=== PATIENT | female | born 2000 | race Hispanic/Latino ===

== ENCOUNTER 2021-06-11 18:42 | Inpatient (IN) | payer OTHER ==
[~2021-06-11] VITALS: Ht 157.5 cm; Wt 101.2 kg
[2021-06-11] MEDS ORDERED: LACTATED RINGERS 1000ML 1,000 ML IV ONE (19:00)
[2021-06-11] MEDS ORDERED: LIDOCAINE HCL 2% VISCOUS 15 ML UDCUP PO ONE (19:00)
[2021-06-11] MEDS ORDERED: DICYCLOMINE HCL 10 MG/5 ML ML PO ONE (19:00)
[2021-06-11] MEDS ORDERED: PROMETHAZINE HCL 25 MG/ML 1ML AMPULE IM ONE (19:00)
[2021-06-11] MEDS ORDERED: FAMOTIDINE 20MG VIAL IV ONE (19:00)
[2021-06-11] MEDS ORDERED: MAG/ALUM/SIMETH 30 ML UDCUP PO ONE (19:00)
[2021-06-11 19:20] LABS: BASOPHILS % (AUTO) 0.2 % (0.0-5.0); EOSINOPHILS % (AUTO) 0.6 % (0.0-8.0); HEMATOCRIT 46.2 % (36-48); LYMPHOCYTES % (AUTO) 12.9 % (21.0-51.0); MEAN CORPUSCULAR HEMOGLOBIN 28.6 pg (27.0-33.0); MEAN CORPUSCULAR HGB CONC 33.5 g/dL (32.0-36.0); MEAN CORPUSCULAR VOLUME 85.2 fL (79-99); MONOCYTES % (AUTO) 5.7 % (3.0-13.0); NEUTROPHILS % (AUTO) 80.3 % (40.0-77.0); PLATELET COUNT (AUTO) 259 K/uL (130-400); RED BLOOD CELL COUNT(AUTO) 5.42 MIL/uL (4.00-5.50); RED CELL DISTRIBUTION WIDTH 12.3 % (11.0-15.5); WHITE BLOOD COUNT (AUTO) 15.7 K/uL (4.8-10.8)
[2021-06-11 19:29] LABS: CREATININE 0.7 mg/dL (0.5-1.5); POTASSIUM 3.4 mmol/L (3.5-5.1)
[2021-06-11 19:34] LABS: BILIRUBIN,TOTAL 0.7 mg/dL (0.2-1.0); TOTAL PROTEIN, SERUM 8.1 g/dL (6.0-8.3)
[2021-06-11 19:43] LABS: APPEARANCE,URINE Cloudy (CLEAR); BILIRUBIN,URINE Negative (NEGATIVE); COLOR,URINE Yellow (YELLOW); GLUCOSE, URINE (UA) Negative (NEGATIVE); KETONES,URINE Negative (NEGATIVE); LEUKOCYTE ESTERASE ,URINE Moderate (NEGATIVE); NITRATE,URINE Negative (NEGATIVE); OCCULT BLOOD,URINE Large (NEGATIVE); PROTEIN,URINE POS 1+ mg/dL (NEGATIVE)
[2021-06-11 19:49] LABS: HCG,QUAL RESULT NEGATIVE (NEGATIVE)
[2021-06-11 19:51] LABS: AMPHET/METH SCREEN,URINE NEGATIVE (NEGATIVE); BARBITURATE SCREEN, URINE NEGATIVE (NEGATIVE); BENZODIAZEPINES SCREEN,URINE NEGATIVE (NEGATIVE); CANNABINOID SCREEN,URINE NEGATIVE (NEGATIVE); COCAINE SCREEN,URINE NEGATIVE (NEGATIVE); OPIATE SCREEN,URINE NEGATIVE (NEGATIVE); PHENCYCLIDINE SCREEN,URINE NEGATIVE (NEGATIVE)
[2021-06-11 19:54] LABS: BACTERIA,URINE Few /HPF (None Seen)
[2021-06-11 19:55] LABS: SQUAMOUS EPITHELIAL CELL,UR Few /HPF (0-2)
[2021-06-11] MEDS ORDERED: CEFTRIAXONE 1G VIAL ONE (19:57)
[2021-06-11] MEDS ORDERED: CEFTRIAXONE 1G VIAL IM SCH (20:00)
[2021-06-11] MEDS ORDERED: ONDANSETRON 4MG INJ ONE (20:48)
[2021-06-11] MEDS ORDERED: ONDANSETRON 4MG INJ IVP SCH (21:00)
[2021-06-11] MEDS ORDERED: HYDROMORPHONE 0.5 MG SYG (0.5MG/0.5ML) IVP PRN (21:30)
[2021-06-11] MEDS ORDERED: LACTULOSE 20 GM/30 ML UDCUP PO PRN (21:30)
[2021-06-11] MEDS ORDERED: ACETAMINOPHEN 325 MG TAB PO PRN ×2 (21:30)
[2021-06-11] MEDS ORDERED: ONDANSETRON 4MG INJ IV PRN (21:30)
[2021-06-11] MEDS: LACTATED RINGERS 1000ML 1,000 ML IV SCH (21:46)
[2021-06-11] MEDS ORDERED: POTASSIUM CHLORIDE 20MEQ/100ML 100 ML IV PRN (22:00)
[2021-06-11] MEDS ORDERED: LIDOCAINE HCL-MPF 1% 2ML VIAL IV PRN (22:00)
[2021-06-12] VITALS (24 sets, daily range): BP systolic 105–136; BP diastolic 61–82
[2021-06-12] MEDS ORDERED: 0.9%NACL 50ML 50 ML IV ONE (04:55)
[2021-06-12] MEDS: ZOSYN 3.375GM+NS 50ML 50 ML IV SCH ×3 (04:57→21:50)
[2021-06-12 05:48] LABS: BASOPHILS % (AUTO) 0.2 % (0.0-5.0); EOSINOPHILS % (AUTO) 0.4 % (0.0-8.0); HEMATOCRIT 39.6 % (36-48); MEAN CORPUSCULAR HEMOGLOBIN 28.9 pg (27.0-33.0); MEAN CORPUSCULAR HGB CONC 34.6 g/dL (32.0-36.0); MEAN CORPUSCULAR VOLUME 83.5 fL (79-99); MONOCYTES % (AUTO) 6.2 % (3.0-13.0); PLATELET COUNT (AUTO) 257 K/uL (130-400); RED BLOOD CELL COUNT(AUTO) 4.74 MIL/uL (4.00-5.50); RED CELL DISTRIBUTION WIDTH 12.6 % (11.0-15.5); WHITE BLOOD COUNT (AUTO) 10.5 K/uL (4.8-10.8)
[2021-06-12 06:03] LABS: ALBUMIN 3.5 g/dL (3.5-5.0); BILIRUBIN,TOTAL 0.6 mg/dL (0.2-1.0); CREATININE 0.5 mg/dL (0.5-1.5); POTASSIUM 3.4 mmol/L (3.5-5.1); TOTAL PROTEIN, SERUM 7.1 g/dL (6.0-8.3)
[2021-06-12] MEDS: LACTATED RINGERS 1000ML 1,000 ML IV SCH ×2 (07:30→21:57)
[2021-06-12] MEDS ORDERED: GADOTERATE MEGLUMINE 10 MMOL/20 ML VIAL IV ONE (08:09)
[2021-06-12] MEDS: FAMOTIDINE 20MG VIAL IV SCH ×2 (10:10→21:50)
[2021-06-12] MEDS ORDERED: BUPIVACAINE/PF 0.25% 30ML VIAL IJ ONE (11:38)
[2021-06-12] MEDS ORDERED: GLYCOPYRROLATE 1 MG/5 ML SYRINGE ONE (11:48)
[2021-06-12] MEDS ORDERED: MIDAZOLAM HCL 1 MG/ML 2ML VIAL ONE (11:48)
[2021-06-12] MEDS ORDERED: PROPOFOL 10 MG/ML 20ML VIAL IV ONE (11:48)
[2021-06-12] MEDS ORDERED: MEPERIDINE-PF 25 MG/ML SYG ONE ×2 (11:49→13:27)
[2021-06-12] MEDS ORDERED: FENTANYL CITRATE PF 50 MCG/1 ML 2ML VIAL ONE (11:49)
[2021-06-12] MEDS ORDERED: ROCURONIUM 10MG/1ML SYR 10 MG/ML ML ONE ×2 (11:53→12:20)
[2021-06-12] MEDS ORDERED: NEOSTIGMINE 5MG/5ML SYR IV ONE (11:53)
[2021-06-12] MEDS ORDERED: ONDANSETRON 4MG INJ ONE (11:53)
[2021-06-12 12:45] LABS: CHOLESTEROL 164 mg/dL (<200); HDL CHOLESTEROL 48 mg/dL (35-85); LDL DIRECT 102 mg/dL (0-99); TRIGLYCERIDES 76 mg/dL (30-200)
[2021-06-12] MEDS ORDERED: TRAMADOL HCL 50 MG TABLET PO PRN (14:30)
[2021-06-12] MEDS ORDERED: ONDANSETRON 4MG INJ IVP PRN (14:30)
[2021-06-12] MEDS ORDERED: PREN-154 PO (14:56)
[2021-06-12] MEDS ORDERED: POTASSIUM CHLORIDE 10% ELIXIR 20 MEQ/15 ML UDCUP PO PRN (20:00)
[2021-06-12] MEDS ORDERED: LIDOCAINE HCL-MPF 1% 2ML VIAL IV PRN (20:00)
[2021-06-12] MEDS: CEFAZOLIN SODIUM 1 GM VIAL IVP SCH (20:26)
[2021-06-12] MEDS: KCL 20 MEQ ERTAB PO PRN (23:04)
[2021-06-13] MEDS: LACTATED RINGERS 1000ML 1,000 ML IV SCH ×2 (00:27→11:54)
[2021-06-13] MEDS: KCL 20 MEQ ERTAB PO PRN (01:04)
[2021-06-13] MEDS: MORPHINE 4 MG SYG IVP PRN ×2 (01:05→12:50)
[2021-06-13 03:13] VITALS: BP 122/65
[2021-06-13] MEDS: CEFAZOLIN SODIUM 1 GM VIAL IVP SCH (04:08)
[2021-06-13] MEDS: ZOSYN 3.375GM+NS 50ML 50 ML IV SCH ×3 (05:18→21:33)
[2021-06-13 06:25] LABS: HEMATOCRIT 33.3 % (36-48); MEAN CORPUSCULAR HEMOGLOBIN 28.1 pg (27.0-33.0); MEAN CORPUSCULAR HGB CONC 31.8 g/dL (32.0-36.0); MEAN CORPUSCULAR VOLUME 88.3 fL (79-99); RED BLOOD CELL COUNT(AUTO) 3.77 MIL/uL (4.00-5.50); RED CELL DISTRIBUTION WIDTH 12.7 % (11.0-15.5); WHITE BLOOD COUNT (AUTO) 9.9 K/uL (4.8-10.8)
[2021-06-13 06:41] LABS: ALBUMIN 3.1 g/dL (3.5-5.0); BILIRUBIN,TOTAL 0.7 mg/dL (0.2-1.0); CREATININE 0.7 mg/dL (0.5-1.5); POTASSIUM 3.7 mmol/L (3.5-5.1); TOTAL PROTEIN, SERUM 6.8 g/dL (6.0-8.3)
[2021-06-13] MEDS: FAMOTIDINE 20MG VIAL IV SCH ×2 (08:42→21:33)
[2021-06-13 08:44] VITALS: BP 116/75
[2021-06-13 11:56] VITALS: BP 117/74
[2021-06-13 13:13] LABS: BASOPHILS % (AUTO) 0.4 % (0.0-5.0); EOSINOPHILS % (AUTO) 0.4 % (0.0-8.0); HEMATOCRIT 30.2 % (36-48); LYMPHOCYTES % (AUTO) 26.5 % (21.0-51.0); MEAN CORPUSCULAR HEMOGLOBIN 28.4 pg (27.0-33.0); MEAN CORPUSCULAR HGB CONC 32.8 g/dL (32.0-36.0); MEAN CORPUSCULAR VOLUME 86.5 fL (79-99); MONOCYTES % (AUTO) 8.3 % (3.0-13.0); NEUTROPHILS % (AUTO) 63.8 % (40.0-77.0); PLATELET COUNT (AUTO) 221 K/uL (130-400); RED BLOOD CELL COUNT(AUTO) 3.49 MIL/uL (4.00-5.50); RED CELL DISTRIBUTION WIDTH 12.7 % (11.0-15.5); WHITE BLOOD COUNT (AUTO) 8.4 K/uL (4.8-10.8)
[2021-06-13 15:43] VITALS: BP 115/66
[2021-06-13 19:11] VITALS: BP 110/68
[2021-06-13] MEDS ORDERED: MORPHINE 2 MG SYG IVP PRN (20:30)
[2021-06-13 23:25] VITALS: BP 120/69
[2021-06-14] MEDS: LACTATED RINGERS 1000ML 1,000 ML IV SCH (01:05)
[2021-06-14 03:25] VITALS: BP 115/65
[2021-06-14] MEDS ORDERED: LACTATED RINGERS 1000ML IV ONE (04:30)
[2021-06-14] MEDS ORDERED: HYDROCODONE/ACETAMINOPHEN 5/325 MG TAB PO ONE (04:30)
[2021-06-14] MEDS ORDERED: METOPROLOL TARTRATE 1 MG/ML 5ML VIAL IV ONE (04:30)
[2021-06-14 04:42] VITALS: BP 112/67
[2021-06-14] MEDS: ZOSYN 3.375GM+NS 50ML 50 ML IV SCH (04:59)
[2021-06-14 06:44] LABS: BASOPHILS % (AUTO) 0.2 % (0.0-5.0); EOSINOPHILS % (AUTO) 1.3 % (0.0-8.0); HEMATOCRIT 24.9 % (36-48); LYMPHOCYTES % (AUTO) 27.9 % (21.0-51.0); MEAN CORPUSCULAR HEMOGLOBIN 28.8 pg (27.0-33.0); MEAN CORPUSCULAR HGB CONC 32.5 g/dL (32.0-36.0); MEAN CORPUSCULAR VOLUME 88.6 fL (79-99); MONOCYTES % (AUTO) 8.3 % (3.0-13.0); PLATELET COUNT (AUTO) 178 K/uL (130-400); RED BLOOD CELL COUNT(AUTO) 2.81 MIL/uL (4.00-5.50); RED CELL DISTRIBUTION WIDTH 12.5 % (11.0-15.5); WHITE BLOOD COUNT (AUTO) 8.9 K/uL (4.8-10.8)
[2021-06-14 07:00] VITALS: BP 108/61
[2021-06-14 08:29] LABS: ALBUMIN 2.7 g/dL (3.5-5.0); BILIRUBIN,TOTAL 0.5 mg/dL (0.2-1.0); CREATININE 0.6 mg/dL (0.5-1.5); POTASSIUM 3.6 mmol/L (3.5-5.1); TOTAL PROTEIN, SERUM 6.2 g/dL (6.0-8.3)
[2021-06-14] MEDS ORDERED: PRENATAL VITAMIN RX TABLET PO SCH (09:00)
[2021-06-14] MEDS: FAMOTIDINE 20MG VIAL IV SCH (09:00)
[2021-06-14] MEDS ORDERED: IOHEXOL-350 75 ML VIAL IV ONE (09:15)
[2021-06-14] MEDS ORDERED: AMOX-426 PO (10:45)
== END 2021-06-14 12:10 | disposition home or self-care (01) | DRG 417 ==
LOC: EDH 18:42 → EDHIP 18:43 → OBSVTOIN 18:43 → UNDOADMOB 19:43 → EDHIP 19:43 → UNDOADMOB 20:59 → WSH 06-12 11:15
PROVIDERS: ADMIT Internal Medicine; ATTEND Internal Medicine
PROC: 0FT44ZZ Resection of Gallbladder, Percutaneous Endoscopic Approach (ICD-10-PCS; principal; 2021-06-12 11:54)
DX: K80.01 Calculus of gallbladder with acute cholecystitis with obstruction (principal); K85.90 Acute pancreatitis without necrosis or infection, unspecified; N39.0 Urinary tract infection, site not specified; Z68.41 Body mass index [BMI] 40.0-44.9, adult; E87.6 Hypokalemia; Z20.822 Contact with and (suspected) exposure to COVID-19; R74.01 Elevation of levels of liver transaminase levels; D64.9 Anemia, unspecified; E66.9 Obesity, unspecified; J45.909 Unspecified asthma, uncomplicated; N92.0 Excessive and frequent menstruation with regular cycle; Z90.49 Acquired absence of other specified parts of digestive tract
CPT/HCPCS: 36415; 71045; 74183; 76705; 80053; 80061; 80305; 81001; 81025; 83690; 84702; 85025; 85027; 86850; 86900; 86901; 87088; 87635; G0378; J0690; J0696; J2175; J2250; J2270; J2405; J2543; J2550; J2704; J2710; J3010; J3490; J7120; Q9967

== ENCOUNTER 2021-06-29 11:54 | Emergency (ER) | payer OTHER ==
[~2021-06-29] VITALS: Ht 165.1 cm; Wt 99.8 kg
[~2021-06-29 11:54] MED LIST: AMOX-426 PO; PREN-154 PO
[2021-06-29 11:58] VITALS: BP 97/61
== END 2021-06-29 13:33 | disposition home or self-care (01) ==
LOC: EDH 11:54
DX: Z48.01 Encounter for change or removal of surgical wound dressing (principal); Z90.49 Acquired absence of other specified parts of digestive tract